=== PATIENT | female | born 1985 | race Caucasian/White ===

== ENCOUNTER → 2017-12-19 | Day surgery (SDC) | payer OTHER ==
[~2017-12-19] VITALS: Ht 154.9 cm; Wt 61.2 kg
[~2017-12-19] MED LIST: AUGMENTIN 875 M1 TAB PO; BENTYL20 MG PO; MIRENA52 MG; MOTRIN 600 MG600 MG PO
--- NOTE | 2017-12-19 14:29 | Operative Report ---
Operative/Inv Procedure Report Surgery Date: 12/19/17 Name of Procedure: Excision of abdominal wall mass, 2 cm Pre-Operative Diagnosis: Endometriosis Post-Operative Diagnosis: Same Estimated Blood Loss: less than 50ml Surgeon/Methane Gas Collection System Operator: Rubén MORROW,Anoop Ricks Anesthesia: laryngeal mask airway Specimens: Abdominal wall mass Operative/Procedure Note Note: After consent patient brought the operating laid supine. General anesthesia was obtained and her abdomen was prepped and draped. The mass was located approximately 3 cm above her Pfannenstiel incision from . We infiltrate of the scar with local anesthesia and made a transverse incision through it. We dissected down to the fascia with electrocautery. An inferiorly based flap was then created in this obtains base right on the fascia until we encountered the mass. The mass was then circumferentially dissected with electrocautery. It was firmly adherent to the fascia. We peeled it off as close to the fascia as possible with electrocautery. It appear to be cystic in nature and it was entered inadvertently during the dissection from the fascia. A small amount of chocolatey brown fluid came out from it. We then passed off the field. The fascia that was left behind appeared to be very thickened and chronically inflamed. It had the texture that possibly there was a mass below the fascia or involving the fascia itself. To rule out malignancy, frozen section of the excised mass was then undertaken. Findings confirmed that of endometriosis. For that reason further resection of the fascia was not undertaken. I did however incised the fascia in the midline with electrocautery and explore posteriorly, to ensure that there was not a subfascial component. There was none. The fascia was then closed with running 0 Maxon sutures. The wound was irrigated with saline and hemostasis achieved with cautery. We then closed the flap space with 3-0 Vicryl sutures and then closed the incision in layers with 304 0 Vicryl. Steri-Strips and sterile dressing applied. Sponge and needle counts are correct Findings: Mass consistent with endometriosis CC: Lawrence CASTELLANO,Flor
== END ==
LOC: STS 01:19
DX: N80.9 Endometriosis, unspecified (principal)
CPT/HCPCS: 81025; J0131; J0690; J1885; J2250